=== PATIENT | female | born 1970 | race Caucasian/White ===

== ENCOUNTER 2019-05-18 11:23 | Outpatient (CLI) | payer OTHER ==
--- NOTE | 2019-05-18 11:33 | RAD ---
XR Chest Pa Lat STANDARD HISTORY: Asthma COMPARISON: 08/11/2014 FINDINGS: The heart size is normal. The lungs are well expanded without focal areas of consolidation, pneumothorax or pleural effusions. IMPRESSION: No radiographic evidence of acute cardiopulmonary process.
== END 2019-05-18 11:24 | disposition home or self-care (01) ==
LOC: BICRAD 11:23
PROVIDERS: ATTEND Family Medicine
DX: J45.998 Other asthma (principal)
CPT/HCPCS: 71046

== ENCOUNTER 2021-11-14 09:55 | Outpatient (CLI) | payer BC | END 2021-11-14 09:56 | disposition home or self-care (01) | LOC: BICMAMMO 09:55 | PROVIDERS: ATTEND Family Medicine | DX: Z12.31 Encounter for screening mammogram for malignant neoplasm of breast (principal) | CPT/HCPCS: 77063; 77067 ==

== ENCOUNTER 2022-10-02 09:46 | Outpatient (CLI) | payer OTHER | END 2022-10-02 09:47 | disposition home or self-care (01) | LOC: BICRAD 09:46 | PROVIDERS: ATTEND Family Medicine | DX: M25.512 Pain in left shoulder (principal) ==